=== PATIENT | male | born 1945 | race Caucasian/White ===

== ENCOUNTER 2021-03-04 13:19 | Emergency (ER) | payer MEDICARE ==
[2021-03-04 13:36] VITALS: BP 173/77; PULSE 60
[2021-03-04] MEDS ORDERED: Sodium Chloride 0.9% 10 ML Syringe FLUSH PRN (13:42)
[2021-03-04] MEDS ORDERED: Sodium Chloride 0.9% 2.5 ML Syringe FLUSH PRN (13:42)
[2021-03-04] MEDS ORDERED: Ketorolac 30 MG/ML SDV IVPUSH ONE (13:43)
[2021-03-04] MEDS ORDERED: Sodium Chloride 0.9% 1,000 ML IV ONE (13:43)
[2021-03-04] MEDS ORDERED: Ondansetron 4 MG/2 ML SDV IVPUSH ONE (13:43)
[2021-03-04 14:20] LABS: CARBON DIOXIDE,CO2 26.7 mmol/L (21.0-32.0)
--- NOTE | 2021-03-04 14:56 | CT ---
INDICATION: Left flank pain TECHNIQUE: CT abdomen and pelvis without contrast. COMPARISON: None FINDINGS: The visualized portions of the lung bases are clear. Evaluation of the abdominal viscera is limited due to lack of IV contrast, however the liver, spleen, pancreas and adrenal glands are unremarkable. A gallstone is seen within the nondistended gallbladder. There is mild left hydronephrosis with a 4 mm obstructing stone in the distal left ureter. This is located approximately 1.5 cm from the ureterovesical junction. Negative for right hydronephrosis or nephrolithiasis. There are bilateral renal cysts. The bladder is minimally distended. The prostate is enlarged measuring 4.7 x 5.7 cm. There is a small hiatal hernia. There are no dilated loops of small bowel to suggest obstruction.The appendix is normal.There is no intraperitoneal free air or fluid. The visualized osseous structures are unremarkable. IMPRESSION: 1. Mild left hydronephrosis and hydroureter with a 4 mm obstructing stone in the distal left ureter. 2. Cholelithiasis. 3. Small hiatal hernia. Please note that all CT scans at this facility use dose modulation, iterative reconstruction, and/or weight-based dosing when appropriate to reduce radiation dose to as low as reasonably achievable. Dictated by Deloris Umana MD @ 03/04/2021 2:55:[address] Deloris Umana @ Mar 04 2021 2:55PM
--- NOTE | 2021-03-04 15:37 | EDM.PDOC ---
ED HPI GENERAL MEDICAL PROBLEM - General Chief Complaint: Flank Pain Stated Complaint: BLOCKAGE Time Seen by Provider: 03/04/21 13:22 Source of Information: Reports: Patient History Limitations: Reports: No Limitations - History of Present Illness INITIAL COMMENTS - FREE TEXT/NARRATIVE: HISTORY AND PHYSICAL: History of present illness: The patient is a 76-year-old male who presents to the emergency department with left lateral flank pain with some abdominal cramping that started at 7:00 this a.m. the patient has been traveling for days had some constipation. He took Colace at 07 30 this morning and a fleets enema at 11 AM. He does have some nausea and had dry heaves around 09:00. He states he has been urinating without difficulty and denies any hematuria. Due to his nausea he is unable to eat or drink. He has never had this type of pain before. Patient denies any fever, chills, headache, change in vision, syncope or near syncope. Denies any chest pain, back pain, shortness of breath or cough. Denies any abdominal pain, diarrhea, or dysuria. Has not noted any blood in urine or stool. Patient has been eating and drinking appropriately. Review of systems: As per history of present illness and below otherwise all systems reviewed and negative. Past medical history: As per history of present illness and as reviewed below otherwise noncontributory. Surgical history: As per history of present illness and as reviewed below otherwise noncontributory. Social history: See social history for further information Family history: As per history of present illness and as reviewed below otherwise noncontributory. Physical exam: General: Well developed and well nourished. Alert and orientated x 3. Nontoxic in appearance and in no acute distress. Vital signs are stable and have been reviewed by me. Nursing notes were reviewed. HEENT: Atraumatic, normocephalic, pupils equal and reactive bilaterally, negative for conjunctival pallor or scleral icterus, mucous membranes moist, TMs normal bilaterally, throat clear, neck supple, nontender, trachea midline. No drooling or trismus noted. No meningeal signs. No hot potato voice noted. Lungs: Clear to auscultation bilaterally. No wheezes, rales, or rhonchi. Chest nontender. Normal work of breathing, no accessory muscles used. Heart: S1S2, regular rate and rhythm without overt murmur, gallops, or rubs. No JVD. No peripheral edema Abdomen: Soft, nondistended, nontender. Normoactive bowel sounds. Negative for masses or costovertebral tenderness. Skin: Intact, warm, dry. No lesions or rashes noted. Hematologic: No petechiae or purpra. Mucosa appropriate color and normal nail bed color and refill. Extremities: Atraumatic, moves all extremities per self without difficulty or deficits, negative for cords or calf pain. Neurovascular unremarkable. Neuro: Awake, alert, oriented. Cranial nerves II through XII unremarkable. Cerebellum unremarkable. Motor and sensory unremarkable throughout. Exam nonfocal. Psychiatric: Mood and affect are appropriate. Normal thought process. Answering questions appropriately. Notes: *This patient was seen and evaluated during the 2019 SARS-CoV-2 novel steven navirus pandemic period. Community viral transmission is ongoing at time of this encounter and the emergency department is operating under pandemic response procedures. The patient presents with complaints of left flank pain after having taking Colace and enema. The patient has no CVA tenderness so I will order a CBC, CMP and urinalysis. If he has hematuria in his urine I will order a CT to rule out renal calculi. We will treat his nausea with Zofran and his pain with Toradol. We will give him IV fluids. The CBC is unremarkable. The CMP: Creatinine 1.6. After speaking with the patient this is normal for him. Patient does have a large amount of hematuria on his urinalysis so an CT wo contrast is ordered. CT abdomen pelvis radiology reading: FINDINGS: The visualized portions of the lung bases are clear. Evaluation of the abdominal viscera is limited due to lack of IV contrast, however the liver, spleen, pancreas and adrenal glands are unremarkable. A gallstone is seen within the nondistended gallbladder. There is mild left hydronephrosis with a 4 mm obstructing stone in the distal left ureter. This is located approximately 1.5 cm from the ureterovesical junction. Negative for right hydronephrosis or nephrolithiasis. There are bilateral renal cysts. The bladder is minimally distended. The prostate is enlarged measuring 4.7 x 5.7 cm. There is a small hiatal hernia. There are no dilated loops of small bowel to suggest obstruction.The appendix is normal.There is no intraperitoneal free air or fluid. The visualized osseous structures are unremarkable. The patient is pain-free at this time. He is educated on the need to strain his urine and bring in the stone for evaluation. The patient is from out of town and visiting his son. He will follow up with his son's primary care or the urologist. The patient is agreeable to the plan of going home with [place] and Zofran. He is currently on Flomax daily. He will use the strainer and follow-up with the primary care or urologist. I have talked with the patient about today's findings, in addition to providing specific details for plan of care. Reassessment at the time of disposition demonstrates that the patient is in no acute distress. The patient is stable for discharge, counseling was provided and we discussed in great detail signs and symptoms that would prompt them to return to the Emergency Department. Medication, follow up and supportive care measures were reviewed and discussed. Voices understanding and is agreeable to plan of care. Denies any further questions or concerns at this time. Diagnostics: CBC, CMP, urinalysis, CT abdomen pelvis W0 Therapeutics: IV fluids, Zofran, Toradol Prescription: [place] 325 5 mg 1 tablet p.o. every 4 hours as needed for pain, Zofran 4 mg p.o. every 6-8 hours as needed nausea Impression: Left renal calculi Plan: 1. You were evaluated today on an emergent basis. Your complaints of left flank pain was evaluated with blood work, urinalysis, and CAT scan. Your creatinine was 1.6 for which you received a liter of fluids. You did indicate that your creatinine is normally a little high. The CT showed a kidney stone in the distal left ureter. Approximately 1.5 cm from the ureterovesical junction. You will continue to have pain as the stone moves until it reaches the bladder. I have prescribed [place] 1 tablet every 4 hours as needed for pain and Zofran 4 mg every 6-8 hours as needed for nausea. Continue to take your Flomax. I would like for you to follow-up with your primary care provider or a urologist. If you have uncontrollable pain please return to the emergency room. If you develop a fever please return to the emergency room. 2. You can alternate Tylenol and ibuprofen as needed for pain and fever management. 3. We encourage you to follow up with your primary care provider and/or recommended specialist in the next few days for re-evaluation and further care/management. 4. If your symptoms should worsen, new symptoms develop or any of the signs and symptoms we discussed should arise please return to the emergency room or call 911 (if needed). Definitive disposition and diagnosis as appropriate pending reevaluation and rev iew of above. Bilateral Lower Back Pain Score (Numeric/FACES): 6 - Related Data Allergies Allergy/AdvReac Type Severity Reaction Status Date / Time No Known Allergies Allergy Verified 03/04/21 13:26 Home Meds: Home Meds Chlorthalidone 25 mg PO DAILY 03/10/15 [History] Finasteride [Proscar] 5 mg PO DAILY 03/10/15 [History] Flecainide [Tambocor] 100 mg PO Q12H 03/10/15 [History] Lisinopril 20 mg PO BID 03/10/15 [History] atorvaSTATin [Lipitor] 40 mg PO BEDTIME 03/10/15 [History] Acetaminophen/HYDROcodone [[place] 325-5 MG] 1 tab PO Q4H 3 Days #24 tablet 03/04/21 [Rx] Ondansetron [Zofran ODT] 4 mg PO Q6H PRN #10 tab.dis 03/04/21 [Rx] Past Medical History HEENT History: Reports: None Cardiovascular History: Reports: High Cholesterol, Hypertension Other Cardiovascular History: PVC's Respiratory History: Reports: None Gastrointestinal History: Reports: GERD Genitourinary History: Reports: BPH Musculoskeletal History: Reports: None Neurological History: Reports: None Psychiatric History: Reports: None Endocrine/Metabolic History: Reports: None Hematologic History: Reports: None Immunologic History: Reports: None Oncologic (Cancer) History: Reports: None Dermatologic History: Reports: None - Infectious Disease History Infectious Disease History: Reports: Chicken Pox - Past Surgical History Head Surgeries/Procedures: Reports: None Social & Family History - Family History Family Medical History: No Pertinent Family History - Tobacco Use Tobacco Use Status *Q: Never Tobacco User - Caffeine Use Caffeine Use: Reports: Coffee - Recreational Drug Use Recreational Drug Use: No ED ROS GENERAL - Review of Systems Review Of Systems: Comprehensive ROS is negative, except as noted in HPI. ED EXAM, RENAL/ - Physical Exam Exam: See Below (Dictation) Course - Vital Signs Last Recorded V/S: Last Vital Signs Temp 98.1 F 03/04/21 13:26 Pulse 60 05/22/21 13:26 Resp 17 03/04/21 13:26 BP 173/77 H 03/04/21 13:26 Pulse Ox 96 03/04/21 13:26 - Orders/Labs/Meds Orders: Active Orders 24 hr Category Date Time Status Saline Lock Insert [OM.PC] Stat Oth 03/04/21 13:42 Ordered Labs: Laboratory Tests 03/04/21 03/04/21 03/04/21 Range/Units 13:42 13:55 13:55 WBC 10.88 (4.0-11.0) K/uL RBC 5.16 (4.50-5.90) M/uL Hgb 16.7 (13.0-17.0) g/dL Hct 48.6 (38.0-50.0) % MCV 94.2 (80.0-98.0) fL MCH 32.4 H (27.0-32.0) pg MCHC 34.4 (31.0-37.0) g/dL RDW Std Deviation 46.8 (28.0-62.0) fl RDW Coeff of Cj 14 (11.0-15.0) % Plt Count 218 (150-400) K/uL MPV 9.60 (7.40-12.00) fL Neut % (Auto) 85.0 H (48.0-80.0) % Lymph % (Auto) 10.9 L (16.0-40.0) % [place] % (Auto) 3.5 (0.0-15.0) % Eos % (Auto) 0.5 (0.0-7.0) % Baso % (Auto) 0.1 (0.0-1.5) % Neut # (Auto) 9.3 H (1.4-5.7) K/uL Lymph # (Auto) 1.2 (0.6-2.4) K/uL [place] # (Auto) 0.4 (0.0-0.8) K/uL Eos # (Auto) 0.1 (0.0-0.7) K/uL Baso # (Auto) 0.0 (0.0-0.1) K/uL Nucleated RBC % 0.0 /100WBC Nucleated RBCs # 0 K/uL Sodium 141 (136-148) mmol/L Potassium 4.0 (3.5-5.1) mmol/L Chloride 106 (98-107) mmol/L Carbon Dioxide 26.7 (21.0-32.0) mmol/L BUN 29 H (7.0-18.0) mg/dL Creatinine 1.6 H (0.8-1.3) mg/dL Est Cr Clr Drug Dosing 41.82 mL/min Estimated GFR (MDRD) 42.5 ml/min Glucose 135 H (74-106) mg/dL Calcium 9.0 (8.5-10.1) mg/dL Total Bilirubin 0.9 (0.2-1.0) mg/dL AST 30 (15-37) IU/L ALT 31 (14-63) IU/L Alkaline Phosphatase 74 (46-116) U/L Total Protein 8.1 (6.4-8.2) g/dL Albumin 4.1 (3.4-5.0) g/dL Globulin 4.0 (2.6-4.0) g/dL Albumin/Globulin Ratio 1.0 (0.9-1.6) Urine Color YELLOW Urine Appearance CLOUDY Urine pH 5.5 (5.0-8.0) Ur Specific [place] >= 1.030 (1.001-1.035) Urine Protein TRACE H (NEGATIVE) mg/dL Urine Glucose (UA) NEGATIVE (NEGATIVE) mg/dL Urine Ketones NEGATIVE (NEGATIVE) mg/dL Urine Occult Blood LARGE H (NEGATIVE) Urine Nitrite NEGATIVE (NEGATIVE) Urine Bilirubin NEGATIVE (NEGATIVE) Urine Urobilinogen 1.0 (<2.0) EU/dL Ur Leukocyte Esterase NEGATIVE (NEGATIVE) Urine RBC 150-200 (0-2/HPF) Urine WBC 0-2 (0-5/HPF) Urine Bacteria NOT SEEN (NEGATIVE) Urine Mucus LIGHT (NONE-MOD) Meds: Medications Discontinued Medications Generic Name Dose Route Start Last Admin Trade Name Freq PRN Reason Stop Dose Admin Sodium Chloride 1,000 mls @ 999 mls/hr 03/04/21 13:43 03/04/21 13:57 Normal Saline IV 03/04/21 14:43 999 mls/hr .BOLUS ONE Administration Ketorolac Tromethamine 30 mg 03/04/21 13:43 03/04/21 13:55 Ketorolac 30 Mg/Ml Sdv IVPUSH 03/04/21 13:44 30 mg ONETIME ONE Administration Ondansetron HCl 4 mg 03/04/21 13:43 03/04/21 13:55 Ondansetron 4 Mg/2 Ml Sdv IVPUSH 03/04/21 13:44 4 mg ONETIME ONE Administration Sodium Chloride 10 ml 03/04/21 13:42 03/04/21 13:58 Sodium Chloride 0.9% 10 Ml Syringe FLUSH 10 ml ASDIRECTED PRN Administration Keep Vein Open Sodium Chloride 2.5 ml 03/04/21 13:42 03/04/21 13:58 Sodium Chloride 0.9% 2.5 Ml Syringe FLUSH 2.5 ml ASDIRECTED PRN Administration Keep Vein Open Departure - Departure Time of Disposition: 15:38 Disposition: Home, Self-Care 01 Condition: Good Clinical Impression: Kidney stone on left side - Discharge Information *PRESCRIPTION DRUG MONITORING PROGRAM REVIEWED*: Not Applicable *COPY OF PRESCRIPTION DRUG MONITORING REPORT IN PATIENT MARIBETH: Not Applicable Prescriptions: Acetaminophen/HYDROcodone [[place] 325-5 MG] 1 tab PO Q4H 3 Days #24 tablet Ondansetron [Zofran ODT] 4 mg PO Q6H PRN #10 tab.dis PRN Reason: Nausea Instructions: Renal Colic, [id number] Referrals: PCP,Not In Area [Primary Care Provider] - Forms: ED Department Discharge Additional Instructions: The following information is given to patients seen in the emergency department who are being discharged to home. This information is to outline your options for follow-up care. We provide all patients seen in our emergency department with a follow-up referral. The need for follow-up, as well as the timing and circumstances, are variable depending upon the specifics of your emergency department visit. If you don't have a primary care physician on staff, we will provide you with a referral. We always advise you to contact your personal physician following an emergency department visit to inform them of the circumstance of the visit and for follow-up with them and/or the need for any referrals to a consulting specialist. The emergency department will also refer you to a specialist when appropriate. This referral assures that you have the opportunity for follow-up care with a specialist. All of these measure are taken in an effort to provide you with optimal care, which includes your follow-up. Under all circumstances we always encourage you to contact your private physician who remains a resource for coordinating your care. When calling for follow-up care, please make the office aware that this follow-up is from your recent emergency room visit. If for any reason you are refused follow-up, please contact the Emergency Department at and asked to speak to the emergency department charge nurse. [facility] - [facility] [address] [place] [id number] [facility] [address] [place] [address] Plan: 1. You were evaluated today on an emergent basis. Your complaints of left flank pain was evaluated with blood work, urinalysis, and CAT scan. Your creatinine was 1.6 for which you received a liter of fluids. You did indicate that your creatinine is normally a little high. The CT showed a kidney stone in the distal left ureter. Approximately 1.5 cm from the ureterovesical junction. You will continue to have pain as the stone moves until it reaches the bladder. I have prescribed [place] 1 tablet every 4 hours as needed for pain and Zofran 4 mg every 6-8 hours as needed for nausea. Continue to take your Flomax. I would like for you to follow-up with your primary care provider or a urologist. If you have uncontrollable pain please return to the emergency room. If you develop a fever please return to the emergency room. 2. You can alternate Tylenol and ibuprofen as needed for pain and fever management. 3. We encourage you to follow up with your primary care provider and/or recommended specialist in the next few days for re-evaluation and further care/management. 4. If your symptoms should worsen, new symptoms develop or any of the signs and symptoms we discussed should arise please return to the emergency room or call 911 (if needed). Sepsis Event Note (ED) - Evaluation Sepsis Screening Result: No Definite Risk - My Orders Last 24 Hours: My Active Orders 03/04/21 13:42 Saline Lock Insert [OM.PC] Stat - Assessment/Plan Last 24 Hours: My Active Orders 03/04/21 13:42 Saline Lock Insert [OM.PC] Stat
== END 2021-03-04 15:56 | disposition home or self-care (01) ==
LOC: MW.ED 13:19
DX: N13.2 Hydronephrosis with renal and ureteral calculous obstruction (principal); E78.00 Pure hypercholesterolemia, unspecified; I10 Essential (primary) hypertension; N40.0 Benign prostatic hyperplasia without lower urinary tract symptoms; Z79.899 Other long term (current) drug therapy
CPT/HCPCS: 36415; 74176; 80053; 81001; 85025; 96374; 96375; 99284; J1885; J2405; J7030

== ENCOUNTER 2021-04-30 03:52 | Inpatient (IN) | payer MEDICARE ==
[2021-04-30] MEDS ORDERED: Sodium Chloride 0.9% 2.5 ML Syringe FLUSH PRN (04:18)
[2021-04-30] MEDS ORDERED: Sodium Chloride 0.9% 1,000 ML IV ONE (04:18)
[2021-04-30] MEDS ORDERED: Sodium Chloride 0.9% 10 ML Syringe FLUSH PRN (04:18)
[2021-04-30] MEDS ORDERED: Diltiazem 25 MG/5 ML SDV IVPUSH ONE ×2 (04:20→06:56)
--- NOTE | 2021-04-30 04:24 | EDM.PDOC ---
ED HPI GENERAL MEDICAL PROBLEM - General Stated Complaint: rapid heartbeat Time Seen by Provider: 04/30/21 04:11 - History of Present Illness INITIAL COMMENTS - FREE TEXT/NARRATIVE: HISTORY AND PHYSICAL: History of present illness: This is a 76-year-old gentleman with a history significant for hypertension who presents ER today secondary to feeling an irregular heartbeat since 10 PM. Patient reports that he was diagnosed with atrial fibrillation in 2014. He reports he was in the hospital for approximately 3 hours when he cardioverted to sinus rhythm and has been in sinus rhythm ever since. Patient reports that he was never treated for his atrial fibrillation and has not required any anticoagulation therapy. Patient reports that he recently saw his nuclear radiation engineer since he was relocating to [facility] and had a full cardiac evaluation perfo rmed including an echocardiogram and a cardiac catheterization. He reports that he did not have any coronary artery disease or require any stents at that time. This was done within the last 6-month. Patient denies any recent fevers, shakes, chills, nausea, vomiting, diarrhea, dysuria, frequency, urgency, chest pain or discomfort, melena, bright red blood per rectum, hematuria. Patient reports no new medications. Review of systems: As per history of present illness and below otherwise all systems reviewed and negative. Past medical history: As per history of present illness and as reviewed below otherwise noncontributory. Surgical history: As per history of present illness and as reviewed below otherwise noncontributory. Social history: No reported history of drug abuse. Family history: As per history of present illness and as reviewed below otherwise noncontributory. Physical exam: This patient was seen and evaluated during the 2019 SARS-CoV-2 novel coronavirus pandemic period. Community viral transmission is ongoing at time of this encounter and the emergency department is operating under pandemic response procedures. Constitutional: Patient is oriented to person, place, and time. Appears well- developed and well-nourished. No distress. HEENT: Moist mucous membranes Head: Normocephalic and atraumatic Eyes: Right eye exhibits no discharge. Left eye exhibits no discharge. No scleral icterus Neck: Normal range of motion. No tracheal deviation present. Cardiovascular: Irregular irregular with a heart rate of 134 Pulmonary: Effort normal, no respiratory distress. Abdominal: No distention Musculoskeletal: Normal range of motion Neurologic: Alert and oriented to person, place and time. Skin: [place], warm and dry. Psychiatric: Normal mood and affect. Behavior is normal. Judgment and thought content normal. Nursing note and vital signs have been reviewed Diagnostics: EKG: As interpreted by ER physician: Julissa: Nonspecific ST-T wave abnormalities Normal axis No evidence of ST elevation AL Atrial fibrillation with a heart rate of 134 Chest Xray: Normal cardiac silhouette No infiltrates or effusions identified. No PTX No evidence of acute bony fracture. As interpreted by ER MD: Julissa [employer]: NSS x1 L, diltiazem 20 mg IV, diltiazem 5 mg/h IV drip and titrate Assessment and plan: 76-year-old gentleman with a distant history of self-limited atrial fibrillation who presents ER today feeling that his atrial fibrillation is back. Patient reports that his last episode of atrial fibrillation was in 2014 and has not been on any anticoagulation therapy or require any chemical or electrical cardioversion back in 2014. Patient reports that he has been symptom-free for the last 6 years until approximately 10 PM tonight when he started feeling irregular heartbeat similar to what he felt when he was diagnosed with atrial fibrillation. Patient will get started on a Cardizem drip after a bolus of 20 mg IV. Patient will have his labs drawn including a TSH, troponin, CMP, PT PTT. Patient will be reevaluated after labs. 6:30 AM: After discussing with patient's , patient's reports that he was started on flecainide in 2014 after being diagnosed with atrial fibrillation and was treated with flecainide since. reports that his atrial fibrillation lasted for a short amount of time in the hospital and resolved after treatment with the flecainide. Patient has been in sinus rhythm since. Patient's labs are all within normal limits. In the ED, the patient was started on a Cardizem bolus of 20 mg IV followed by a Cardizem drip. Patient's heart rate initially responded with a pulse of less than 90 after the bolus however it is slowly been rising and has stabilized at a heart rate of approximately 120 to 130 bpm. Patient will be given a dose of Lopressor 5 mg IV in the ED to assist with rate control. Second dose of Cardizem 25 mg IV was deferred secondary to significant drop in his blood pressure after the initial dose of 20 mg. Case was discussed with Dr. Lazo who agrees with plan to admit to the ICU. Critical Care: The high probability of sudden, clinically significant deterioration in the patient's condition required the highest level of my preparedness to intervene urgently. The services I provided to this patient were to treat and/or prevent clinically significant deterioration. Services included the following: chart data review, reviewing nursing notes and/or old charts, documentation time, travel service consultant collaboration regarding findings and treatment options, medication orders and management, direct patient care, vital sign assessments and ordering, interpreting and reviewing diagnostic studies/lab tests. Aggregate critical care time includes only time during which I was e ngaged inwork directly related to the patient's care, as described above, whether at the bedside or elsewhere in the Emergency Department. It did not include time spent performing other reported procedures or the services of residents, students, nurses or physician assistants. Critical Care Time: 35 minutes Definitive disposition and diagnosis as appropriate pending reevaluation and review of above. - Related Data Allergies Allergy/AdvReac Type Severity Reaction Status Date / Time No Known Allergies Allergy Verified 04/30/21 07:57 Home Meds: Home Meds Chlorthalidone 25 mg PO DAILY 03/10/15 [History] Finasteride [Proscar] 5 mg PO DAILY 03/10/15 [History] Lisinopril 20 mg PO BID 03/10/15 [History] Aspirin 81 mg PO DAILY 04/30/21 [History] Ezetimibe 10 mg PO DAILY 04/30/21 [History] Lovastatin 10 mg PO DAILY 04/30/21 [History] Multivitamin 1 tab PO DAILY 04/30/21 [History] Sotalol HCl [Sotalol] 120 mg PO BID 04/30/21 [History] Ubidecarenone [Coq-10] 300 mg PO DAILY 04/30/21 [History] Past Medical History HEENT History: Reports: None Cardiovascular History: Reports: High Cholesterol, Hypertension Other Cardiovascular History: PVC's Respiratory History: Reports: None Gastrointestinal History: Reports: GERD Genitourinary History: Reports: BPH Musculoskeletal History: Reports: None Neurological History: Reports: None Psychiatric History: Reports: None Endocrine/Metabolic History: Reports: None Hematologic History: Reports: None Immunologic History: Reports: None Oncologic (Cancer) History: Reports: None Dermatologic History: Reports: None - Infectious Disease History Infectious Disease History: Reports: Chicken Pox - Past Surgical History Head Surgeries/Procedures: Reports: None Social & Family History - Family History Family Medical History: No Pertinent Family History - Caffeine Use Caffeine Use: Reports: Coffee ED ROS GENERAL - Review of Systems Review Of Systems: See Below ED EXAM, GENERAL - Physical Exam Exam: See Below Course - Vital Signs Last Recorded V/S: Last Vital Signs Temp 97.4 F 04/30/21 20:00 Pulse 112 H 04/30/21 20:47 Resp 16 04/30/21 23:00 BP 115/64 04/30/21 23:00 Pulse Ox 92 L 04/30/21 23:00 - Orders/Labs/Meds Orders: Active Orders 24 hr Category Date Time Status Sodium Chloride 0.9% [Saline Flush] Med 04/30/21 04:18 Active 10 ml FLUSH ASDIRECTED PRN Sodium Chloride 0.9% [Saline Flush] Med 04/30/21 04:18 Active 2.5 ml FLUSH ASDIRECTED PRN Saline Lock Insert [OM.PC] Stat Oth 04/30/21 04:18 Ordered Medication Orders Digoxin (Digoxin 500 Mcg/2 Ml Amp) 250 mcg IVPUSH ONETIME ONE Stop: 05/01/21 01:01 Enoxaparin Sodium (Enoxaparin 40 Mg/0.4 Ml Syringe) 40 mg SUBCUT Q24H JIMENA Last Admin: 04/30/21 15:04 Dose: 40 mg Documented by: BRENNAN Diltiazem HCl 100 mg/ Sodium (Chloride) 100 mls @ 5 mls/hr IV NOW JIMENA; Protocol Sodium Chloride (Sodium Chloride 0.9% 10 Ml Syringe) 10 ml FLUSH ASDIRECTED PRN PRN Reason: Keep Vein Open Last Admin: 04/30/21 04:49 Dose: 10 ml Documented by: MAHNAZ Sodium Chloride (Sodium Chloride 0.9% 2.5 Ml Syringe) 2.5 ml FLUSH ASDIRECTED PRN PRN Reason: Keep Vein Open Last Admin: 04/30/21 04:48 Dose: 2.5 ml Documented by: MAHNAZ Labs: Laboratory Tests 04/30/21 04/30/21 04/30/21 Range/Units 04:42 04:42 04:42 WBC 7.38 (4.0-11.0) K/uL RBC 4.96 (4.50-5.90) M/uL Hgb 15.8 (13.0-17.0) g/dL Hct 45.2 (38.0-50.0) % MCV 91.1 (80.0-98.0) fL MCH 31.9 (27.0-32.0) pg MCHC 35.0 (31.0-37.0) g/dL RDW Std Deviation 44.8 (28.0-62.0) fl RDW Coeff of Cj 14 (11.0-15.0) % Plt Count 240 (150-400) K/uL MPV 9.20 (7.40-12.00) fL Neut % (Auto) 56.7 (48.0-80.0) % Lymph % (Auto) 29.0 (16.0-40.0) % [place] % (Auto) 10.4 (0.0-15.0) % Eos % (Auto) 3.5 (0.0-7.0) % Baso % (Auto) 0.4 (0.0-1.5) % Neut # (Auto) 4.2 (1.4-5.7) K/uL Lymph # (Auto) 2.1 (0.6-2.4) K/uL [place] # (Auto) 0.8 (0.0-0.8) K/uL Eos # (Auto) 0.3 (0.0-0.7) K/uL Baso # (Auto) 0.0 (0.0-0.1) K/uL Nucleated RBC % 0.0 /100WBC Nucleated RBCs # 0 K/uL INR 0.99 APTT 27.3 (18.6-31.3) SEC Sodium 143 (136-148) mmol/L Potassium 4.1 (3.5-5.1) mmol/L Chloride 108 H (98-107) mmol/L Carbon Dioxide 23.1 (21.0-32.0) mmol/L BUN 31 H (7.0-18.0) mg/dL Creatinine 1.3 (0.8-1.3) mg/dL Est Cr Clr Drug Dosing TNP Estimated GFR (MDRD) 54.0 ml/min Glucose 114 H (74-106) mg/dL Calcium 9.1 (8.5-10.1) mg/dL Magnesium (1.8-2.4) mg/dL Total Bilirubin 0.5 (0.2-1.0) mg/dL AST 29 (15-37) IU/L ALT 36 (14-63) IU/L Alkaline Phosphatase 55 (46-116) U/L Troponin I < 0.050 (0.000-0.056) ng/mL Total Protein 7.2 (6.4-8.2) g/dL Albumin 3.8 (3.4-5.0) g/dL Globulin 3.4 (2.6-4.0) g/dL Albumin/Globulin Ratio 1.1 (0.9-1.6) TSH, Ultra Sensitive 0.93 (0.36-3.74) uIU/mL 04/30/21 Range/Units 04:42 WBC (4.0-11.0) K/uL RBC (4.50-5.90) M/uL Hgb (13.0-17.0) g/dL Hct (38.0-50.0) % MCV (80.0-98.0) fL MCH (27.0-32.0) pg MCHC (31.0-37.0) g/dL RDW Std Deviation (28.0-62.0) fl RDW Coeff of Cj (11.0-15.0) % Plt Count (150-400) K/uL MPV (7.40-12.00) fL Neut % (Auto) (48.0-80.0) % Lymph % (Auto) (16.0-40.0) % [place] % (Auto) (0.0-15.0) % Eos % (Auto) (0.0-7.0) % Baso % (Auto) (0.0-1.5) % Neut # (Auto) (1.4-5.7) K/uL Lymph # (Auto) (0.6-2.4) K/uL [place] # (Auto) (0.0-0.8) K/uL Eos # (Auto) (0.0-0.7) K/uL Baso # (Auto) (0.0-0.1) K/uL Nucleated RBC % /100WBC Nucleated RBCs # K/uL INR APTT (18.6-31.3) SEC Sodium (136-148) mmol/L Potassium (3.5-5.1) mmol/L Chloride (98-107) mmol/L Carbon Dioxide (21.0-32.0) mmol/L BUN (7.0-18.0) mg/dL Creatinine (0.8-1.3) mg/dL Est Cr Clr Drug Dosing Estimated GFR (MDRD) ml/min Glucose (74-106) mg/dL Calcium (8.5-10.1) mg/dL Magnesium 2.0 (1.8-2.4) mg/dL Total Bilirubin (0.2-1.0) mg/dL AST (15-37) IU/L ALT (14-63) IU/L Alkaline Phosphatase (46-116) U/L Troponin I (0.000-0.056) ng/mL Total Protein (6.4-8.2) g/dL Albumin (3.4-5.0) g/dL Globulin (2.6-4.0) g/dL Albumin/Globulin Ratio (0.9-1.6) TSH, Ultra Sensitive (0.36-3.74) uIU/mL Meds: Medications Generic Name Dose Route Start Last Admin Trade Name Freq PRN Reason Stop Dose Admin Digoxin 250 mcg 05/01/21 01:00 Digoxin 500 Mcg/2 Ml Amp IVPUSH 05/01/21 01:01 ONETIME ONE Enoxaparin Sodium 40 mg 04/30/21 14:30 04/30/21 15:04 Enoxaparin 40 Mg/0.4 Ml Syringe SUBCUT 40 mg Q24H JIMENA Administration Diltiazem HCl 100 mg/ Sodium 100 mls @ 5 mls/hr 04/30/21 13:45 Chloride IV NOW JIMENA Protocol 5 MG/HR Sodium Chloride 10 ml 04/30/21 04:18 04/30/21 04:49 Sodium Chloride 0.9% 10 Ml Syringe FLUSH 10 ml ASDIRECTED PRN Administration Keep Vein Open Sodium Chloride 2.5 ml 04/30/21 04:18 04/30/21 04:48 Sodium Chloride 0.9% 2.5 Ml Syringe FLUSH 2.5 ml ASDIRECTED PRN Administration Keep Vein Open Discontinued Medications Generic Name Dose Route Start Last Admin Trade Name Freq PRN Reason Stop Dose Admin Digoxin 250 mcg 04/30/21 13:33 04/30/21 14:08 Digoxin 500 Mcg/2 Ml Amp IVPUSH 04/30/21 13:34 250 mcg ONETIME ONE Administration Digoxin 250 mcg 04/30/21 20:18 04/30/21 20:47 Digoxin 500 Mcg/2 Ml Amp IVPUSH 04/30/21 20:19 250 mcg ONETIME ONE Administration Diltiazem HCl 20 mg 04/30/21 04:20 04/30/21 04:48 Diltiazem 25 Mg/5 Ml Sdv IVPUSH 04/30/21 04:21 20 mg ONETIME ONE Administration Diltiazem HCl 20 mg 04/30/21 06:56 04/30/21 07:01 Diltiazem 25 Mg/5 Ml Sdv IVPUSH 04/30/21 06:57 20 mg ONETIME ONE Administration Diltiazem HCl Confirm 04/30/21 06:55 04/30/21 07:20 Diltiazem 25 Mg/5 Ml Sdv Administered 04/30/21 06:56 Not Given Dose 25 mg .ROUTE .STK-MED ONE Sodium Chloride 1,000 mls @ 999 mls/hr 04/30/21 04:18 04/30/21 04:48 Normal Saline IV 04/30/21 05:18 999 mls/hr .Bolus ONE Administration Diltiazem HCl 100 mg/ Sodium 100 mls @ 5 mls/hr 04/30/21 04:30 04/30/21 11:53 Chloride IV 0 mg/hr NOW JIMENA 0 mls/hr Titration Protocol 5 MG/HR Metoprolol Tartrate 5 mg/ 55 mls @ 100 mls/hr 04/30/21 06:24 04/30/21 06:28 Sodium Chloride IV 04/30/21 06:56 Not Given ONETIME ONE Metoprolol Tartrate 5 mg 04/30/21 06:29 04/30/21 06:33 Metoprolol Tartrate 5 Mg/5 Ml Sdv IVPUSH 04/30/21 06:30 5 mg ONETIME ONE Administration Metoprolol Tartrate Confirm 04/30/21 06:27 04/30/21 06:33 Metoprolol Tartrate 5 Mg/5 Ml Sdv Administered 04/30/21 06:28 Not Given Dose 5 mg .ROUTE .STK-MED ONE Sotalol HCl 120 mg 04/30/21 13:45 04/30/21 16:40 Sotalol 80 Mg Tab PO 120 mg BID JIMENA Administration Departure - Departure Time of Disposition: 23:00 Disposition: Admitted As Inpatient 68 Condition: Good Clinical Impression: Atrial fibrillation with rapid ventricular response - Discharge Information - My Orders Last 24 Hours: My Active Orders 04/30/21 04:18 Sodium Chloride 0.9% [Saline Flush] 10 ml FLUSH ASDIRECTED PRN Sodium Chloride 0.9% [Saline Flush] 2.5 ml FLUSH ASDIRECTED PRN Saline Lock Insert [OM.PC] Stat - Assessment/Plan Last 24 Hours: My Active Orders 04/30/21 04:18 Sodium Chloride 0.9% [Saline Flush] 10 ml FLUSH ASDIRECTED PRN Sodium Chloride 0.9% [Saline Flush] 2.5 ml FLUSH ASDIRECTED PRN Saline Lock Insert [OM.PC] Stat
[2021-04-30] MEDS ORDERED: Diltiazem 100 MG in Sodium Chloride 0.9% 100 ML IV SCH ×2 (04:30→13:45)
[2021-04-30 05:19] LABS: BLOOD UREA NITROGEN,BUN 31 mg/dL (7.0-18.0); CARBON DIOXIDE,CO2 23.1 mmol/L (21.0-32.0); CHLORIDE,CL 108 mmol/L (98-107); GLUCOSE RANDOM 114 mg/dL (74-106); POTASSIUM,K 4.1 mmol/L (3.5-5.1); SODIUM,NA 143 mmol/L (136-148)
--- NOTE | 2021-04-30 05:31 | CR ---
Indication: Chest pain. AFib Technique: Chest 1 view Comparison: None Findings/Impression: Cardiovascular and mediastinum: Normal cardiac size. A mildly unfolded, calcified aorta. Lungs and pleural space: No consolidation or pleural effusions. No pneumothorax seen. Bones and soft tissues: Degenerative changes in the left glenohumeral joint. Dictated by Jon Jacques MD @ 04/30/2021 5:29:[address] Jon Jacques @ Apr 30 2021 5:29AM
[2021-04-30] MEDS ORDERED: Metoprolol Tartrate 5 MG in Sodium Chloride 0.9% 50 ML IV ONE (06:24)
[2021-04-30] MEDS ORDERED: Metoprolol Tartrate 5 MG/5 ML SDV ONE (06:27)
[2021-04-30] MEDS ORDERED: Metoprolol Tartrate 5 MG/5 ML SDV IVPUSH ONE (06:29)
[2021-04-30] MEDS ORDERED: Diltiazem 25 MG/5 ML SDV ONE (06:55)
--- NOTE | 2021-04-30 10:01 | PCM.HP.2 ---
H&P History of Present Illness - General Admit Problem/Dx: Admission Diagnosis/Problem Admission Diagnosis/Problem Atrial fibrillation with rapid ventricular response - Related Data Allergies/Adverse Reactions: Allergies Allergy/AdvReac Type Severity Reaction Status Date / Time No Known Allergies Allergy Verified 04/30/21 07:57 Home Medications: Home Meds Chlorthalidone 25 mg PO DAILY 03/10/15 [History] Finasteride [Proscar] 5 mg PO DAILY 03/10/15 [History] Lisinopril 20 mg PO BID 03/10/15 [History] Aspirin 81 mg PO DAILY 04/30/21 [History] Ezetimibe 10 mg PO DAILY 04/30/21 [History] Lovastatin 10 mg PO DAILY 04/30/21 [History] Multivitamin 1 tab PO DAILY 04/30/21 [History] Sotalol HCl [Sotalol] 120 mg PO BID 04/30/21 [History] Ubidecarenone [Coq-10] 300 mg PO DAILY 04/30/21 [History] Past Medical History HEENT History: Reports: None Cardiovascular History: Reports: Afib, High Cholesterol, Hypertension Other Cardiovascular History: PVC's Respiratory History: Reports: Sleep Apnea Gastrointestinal History: Reports: GERD Genitourinary History: Reports: BPH Musculoskeletal History: Reports: None Neurological History: Reports: None Psychiatric History: Reports: None Endocrine/Metabolic History: Reports: None Hematologic History: Reports: None Immunologic History: Reports: None Oncologic (Cancer) History: Reports: None Dermatologic History: Reports: None - Infectious Disease History Infectious Disease History: Reports: Chicken Pox - Past Surgical History Head Surgeries/Procedures: Reports: None Cardiovascular Surgical History: Reports: Cardiac Ablation Social & Family History - Family History Family Medical History: No Pertinent Family History - Tobacco Use Tobacco Use Status *Q: Never Tobacco User - Caffeine Use Caffeine Use: Reports: Coffee Caffeine Use Comment: 1 cup daily every morning - Alcohol Use Date of Last Drink: 01/12/21 - Recreational Drug Use Recreational Drug Use: No Exam - Vital Signs Vital Signs: Last Vital Signs Temp 36.2 C 04/30/21 07:45 Pulse 84 04/30/21 07:26 Resp 15 04/30/21 09:00 BP 93/73 04/30/21 09:00 Pulse Ox 92 L 04/30/21 09:00 Weight: 112.3 kg - Patient Data Lab Results Last 24 hrs: Laboratory Results - last 24 hr 04/30/21 04/30/21 04/30/21 Range/Units 04:42 04:42 04:42 WBC 7.38 (4.0-11.0) K/uL RBC 4.96 (4.50-5.90) M/uL Hgb 15.8 (13.0-17.0) g/dL Hct 45.2 (38.0-50.0) % MCV 91.1 (80.0-98.0) fL MCH 31.9 (27.0-32.0) pg MCHC 35.0 (31.0-37.0) g/dL RDW Std Deviation 44.8 (28.0-62.0) fl RDW Coeff of Cj 14 (11.0-15.0) % Plt Count 240 (150-400) K/uL MPV 9.20 (7.40-12.00) fL Neut % (Auto) 56.7 (48.0-80.0) % Lymph % (Auto) 29.0 (16.0-40.0) % [place] % (Auto) 10.4 (0.0-15.0) % Eos % (Auto) 3.5 (0.0-7.0) % Baso % (Auto) 0.4 (0.0-1.5) % Neut # (Auto) 4.2 (1.4-5.7) K/uL Lymph # (Auto) 2.1 (0.6-2.4) K/uL [place] # (Auto) 0.8 (0.0-0.8) K/uL Eos # (Auto) 0.3 (0.0-0.7) K/uL Baso # (Auto) 0.0 (0.0-0.1) K/uL Nucleated RBC % 0.0 /100WBC Nucleated RBCs # 0 K/uL INR 0.99 APTT 27.3 (18.6-31.3) SEC Sodium 143 (136-148) mmol/L Potassium 4.1 (3.5-5.1) mmol/L Chloride 108 H (98-107) mmol/L Carbon Dioxide 23.1 (21.0-32.0) mmol/L BUN 31 H (7.0-18.0) mg/dL Creatinine 1.3 (0.8-1.3) mg/dL Est Cr Clr Drug Dosing TNP Estimated GFR (MDRD) 54.0 ml/min Glucose 114 H (74-106) mg/dL Calcium 9.1 (8.5-10.1) mg/dL Total Bilirubin 0.5 (0.2-1.0) mg/dL AST 29 (15-37) IU/L ALT 36 (14-63) IU/L Alkaline Phosphatase 55 (46-116) U/L Troponin I < 0.050 (0.000-0.056) ng/mL Total Protein 7.2 (6.4-8.2) g/dL Albumin 3.8 (3.4-5.0) g/dL Globulin 3.4 (2.6-4.0) g/dL Albumin/Globulin Ratio 1.1 (0.9-1.6) TSH, Ultra Sensitive 0.93 (0.36-3.74) uIU/mL Result Diagrams: 04/30/21 04:42 04/30/21 04:42 Sepsis Event Note - Evaluation Sepsis Screening Result: No Definite Risk - Focused Exam Vital Signs: Vital Signs Temp Pulse Pulse Resp BP BP Pulse Ox 04/30/21 09:00 15 93/73 92 L 04/30/21 08:00 14 115/73 93 L 04/30/21 07:45 36.2 C 20 120/77 94 L 04/30/21 07:26 84 04/30/21 07:02 96 15 111/70 93 L 04/30/21 06:33 128 H 138/71 04/30/21 06:04 130 H 20 111/53 L 93 L 04/30/21 04:52 90 18 121/80 97 04/30/21 04:33 35.5 C L 140 H 20 96/69 100 Orders Last 24hrs: Active Orders 24 hr Category Date Time Status Patient Status [ADT] Routine ADT 04/30/21 06:25 Active Antiembolic Devices [RC] PER UNIT ROUTINE Care 04/30/21 08:30 Active EKG Documentation Completion [RC] AM Care 04/30/21 04:18 Active Vital Signs [RC] Q1H Care 04/30/21 08:00 Active Regular Diet [DIET] Diet 04/30/21 Breakfast Active Diltiazem [Cardizem] 100 mg Med 04/30/21 04:30 Active Sodium Chloride 0.9% [Normal Saline] 100 ml IV NOW Sodium Chloride 0.9% [Saline Flush] Med 04/30/21 04:18 Active 10 ml FLUSH ASDIRECTED PRN Sodium Chloride 0.9% [Saline Flush] Med 04/30/21 04:18 Active 2.5 ml FLUSH ASDIRECTED PRN SCD [Sequential Compression Device] [OM.PC] Routine Oth 04/30/21 08:30 Ordered Saline Lock Insert [OM.PC] Stat Oth 04/30/21 04:18 Ordered Medication Orders Diltiazem HCl 100 mg/ Sodium (Chloride) 100 mls @ 5 mls/hr IV NOW [facility]; Protocol Last Titration: 04/30/21 06:05 Dose: 15 mg/hr, 15 mls/hr Documented by: ANA LILIA Admin: 04/30/21 05:09 Dose: 5 mg/hr, 5 mls/hr Documented by: [id number] Sodium Chloride (Sodium Chloride 0.9% 10 Ml Syringe) 10 ml FLUSH ASDIRECTED PRN PRN Reason: Keep Vein Open Last Admin: 04/30/21 04:49 Dose: 10 ml Documented by: [id number] Sodium Chloride (Sodium Chloride 0.9% 2.5 Ml Syringe) 2.5 ml FLUSH ASDIRECTED PRN PRN Reason: Keep Vein Open Last Admin: 04/30/21 04:48 Dose: 2.5 ml Documented by: [id number]
[2021-04-30] MEDS ORDERED: Digoxin 500 MCG/2 ML Amp IVPUSH ONE ×2 (13:33→20:18)
[2021-04-30] MEDS ORDERED: Sotalol 80 MG Tab PO SCH (13:45)
--- NOTE | 2021-04-30 14:25 | PCM.HP.2 ---
H&P History of Present Illness - General Date of Service: 04/30/21 Admit Problem/Dx: Admission Diagnosis/Problem Admission Diagnosis/Problem Atrial fibrillation with rapid ventricular response - History of Present Illness Initial Comments - Free Text/Narative: 76 yo male who presents with one day history of palpitaitons. Patient denies any chest pain, shortness of breath, or dizziness. He was found to be in atrial fibrillation with RVR. He reports a history of a.fib but has in been in normal sinus for years. He takes sotolol, and ASA. 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 - Related Data Allergies/Adverse Reactions: Allergies Allergy/AdvReac Type Severity Reaction Status Date / Time No Known Allergies Allergy Verified 04/30/21 07:57 Home Medications: Home Meds Chlorthalidone 25 mg PO DAILY 03/10/15 [History] Finasteride [Proscar] 5 mg PO DAILY 03/10/15 [History] Lisinopril 20 mg PO BID 03/10/15 [History] Aspirin 81 mg PO DAILY 04/30/21 [History] Ezetimibe 10 mg PO DAILY 04/30/21 [History] Lovastatin 10 mg PO DAILY 04/30/21 [History] Multivitamin 1 tab PO DAILY 04/30/21 [History] Sotalol HCl [Sotalol] 120 mg PO BID 04/30/21 [History] Ubidecarenone [Coq-10] 300 mg PO DAILY 04/30/21 [History] Past Medical History HEENT History: Reports: None Cardiovascular History: Reports: Afib, High Cholesterol, Hypertension Other Cardiovascular History: PVC's Respiratory History: Reports: Sleep Apnea Gastrointestinal History: Reports: GERD Genitourinary History: Reports: BPH Musculoskeletal History: Reports: None Neurological History: Reports: None Psychiatric History: Reports: None Endocrine/Metabolic History: Reports: None Hematologic History: Reports: None Immunologic History: Reports: None Oncologic (Cancer) History: Reports: None Dermatologic History: Reports: None - Infectious Disease History Infectious Disease History: Reports: Chicken Pox - Past Surgical History Head Surgeries/Procedures: Reports: None Cardiovascular Surgical History: Reports: Cardiac Ablation Social & Family History - Family History Family Medical History: No Pertinent Family History - Tobacco Use Tobacco Use Status *Q: Never Tobacco User - Caffeine Use Caffeine Use: Reports: Coffee Caffeine Use Comment: 1 cup daily every morning - Alcohol Use Date of Last Drink: 01/12/21 - Recreational Drug Use Recreational Drug Use: No H&P Review of Systems - Review of Systems: Review Of Systems: Comprehensive ROS is negative, except as noted in HPI. Exam - Exam Exam: See Below - Vital Signs Vital Signs: Last Vital Signs Temp 36.3 C 04/30/21 12:00 Pulse 121 H 04/30/21 14:08 Resp 20 04/30/21 14:00 BP 92/54 L 04/30/21 14:00 Pulse Ox 93 L 04/30/21 14:00 Weight: 112.3 kg - Exam General: Alert, Oriented HEENT: Mucosa Moist & [place] Neck: Supple Lungs: Clear to Auscultation, Normal Respiratory Effort Cardiovascular: Regular Rate, Regular Rhythm GI/Abdominal Exam: Normal Bowel Sounds, Soft, Non-Tender Extremities: Non-Tender, No Pedal Edema Skin: Warm, Dry, Intact Neurological: Cranial Nerves Intact - Patient Data Lab Results Last 24 hrs: Laboratory Results - last 24 hr 04/30/21 04/30/21 04/30/21 Range/Units 04:42 04:42 04:42 WBC 7.38 (4.0-11.0) K/uL RBC 4.96 (4.50-5.90) M/uL Hgb 15.8 (13.0-17.0) g/dL Hct 45.2 (38.0-50.0) % MCV 91.1 (80.0-98.0) fL MCH 31.9 (27.0-32.0) pg MCHC 35.0 (31.0-37.0) g/dL RDW Std Deviation 44.8 (28.0-62.0) fl RDW Coeff of Cj 14 (11.0-15.0) % Plt Count 240 (150-400) K/uL MPV 9.20 (7.40-12.00) fL Neut % (Auto) 56.7 (48.0-80.0) % Lymph % (Auto) 29.0 (16.0-40.0) % [place] % (Auto) 10.4 (0.0-15.0) % Eos % (Auto) 3.5 (0.0-7.0) % Baso % (Auto) 0.4 (0.0-1.5) % Neut # (Auto) 4.2 (1.4-5.7) K/uL Lymph # (Auto) 2.1 (0.6-2.4) K/uL [place] # (Auto) 0.8 (0.0-0.8) K/uL Eos # (Auto) 0.3 (0.0-0.7) K/uL Baso # (Auto) 0.0 (0.0-0.1) K/uL Nucleated RBC % 0.0 /100WBC Nucleated RBCs # 0 K/uL INR 0.99 APTT 27.3 (18.6-31.3) SEC Sodium 143 (136-148) mmol/L Potassium 4.1 (3.5-5.1) mmol/L Chloride 108 H (98-107) mmol/L Carbon Dioxide 23.1 (21.0-32.0) mmol/L BUN 31 H (7.0-18.0) mg/dL Creatinine 1.3 (0.8-1.3) mg/dL Est Cr Clr Drug Dosing TNP Estimated GFR (MDRD) 54.0 ml/min Glucose 114 H (74-106) mg/dL Calcium 9.1 (8.5-10.1) mg/dL Magnesium (1.8-2.4) mg/dL Total Bilirubin 0.5 (0.2-1.0) mg/dL AST 29 (15-37) IU/L ALT 36 (14-63) IU/L Alkaline Phosphatase 55 (46-116) U/L Troponin I < 0.050 (0.000-0.056) ng/mL Total Protein 7.2 (6.4-8.2) g/dL Albumin 3.8 (3.4-5.0) g/dL Globulin 3.4 (2.6-4.0) g/dL Albumin/Globulin Ratio 1.1 (0.9-1.6) TSH, Ultra Sensitive 0.93 (0.36-3.74) uIU/mL 04/30/21 Range/Units 04:42 WBC (4.0-11.0) K/uL RBC (4.50-5.90) M/uL Hgb (13.0-17.0) g/dL Hct (38.0-50.0) % MCV (80.0-98.0) fL MCH (27.0-32.0) pg MCHC (31.0-37.0) g/dL RDW Std Deviation (28.0-62.0) fl RDW Coeff of Cj (11.0-15.0) % Plt Count (150-400) K/uL MPV (7.40-12.00) fL Neut % (Auto) (48.0-80.0) % Lymph % (Auto) (16.0-40.0) % [place] % (Auto) (0.0-15.0) % Eos % (Auto) (0.0-7.0) % Baso % (Auto) (0.0-1.5) % Neut # (Auto) (1.4-5.7) K/uL Lymph # (Auto) (0.6-2.4) K/uL [place] # (Auto) (0.0-0.8) K/uL Eos # (Auto) (0.0-0.7) K/uL Baso # (Auto) (0.0-0.1) K/uL Nucleated RBC % /100WBC Nucleated RBCs # K/uL INR APTT (18.6-31.3) SEC Sodium (136-148) mmol/L Potassium (3.5-5.1) mmol/L Chloride (98-107) mmol/L Carbon Dioxide (21.0-32.0) mmol/L BUN (7.0-18.0) mg/dL Creatinine (0.8-1.3) mg/dL Est Cr Clr Drug Dosing Estimated GFR (MDRD) ml/min Glucose (74-106) mg/dL Calcium (8.5-10.1) mg/dL Magnesium 2.0 (1.8-2.4) mg/dL Total Bilirubin (0.2-1.0) mg/dL AST (15-37) IU/L ALT (14-63) IU/L Alkaline Phosphatase (46-116) U/L Troponin I (0.000-0.056) ng/mL Total Protein (6.4-8.2) g/dL Albumin (3.4-5.0) g/dL Globulin (2.6-4.0) g/dL Albumin/Globulin Ratio (0.9-1.6) TSH, Ultra Sensitive (0.36-3.74) uIU/mL Result Diagrams: 04/30/21 04:42 04/30/21 04:42 Sepsis Event Note - Evaluation Sepsis Screening Result: No Definite Risk - Focused Exam Vital Signs: Vital Signs Temp Pulse Pulse Resp BP BP Pulse Ox 04/30/21 14:08 121 H 04/30/21 14:00 20 92/54 L 93 L 04/30/21 13:00 15 98/69 93 L 04/30/21 12:00 36.3 C 17 93/50 L 92 L 04/30/21 11:00 18 101/50 L 92 L 04/30/21 10:00 18 98/62 92 L 04/30/21 09:00 15 93/73 92 L 04/30/21 08:00 14 115/73 93 L 04/30/21 07:45 36.2 C 20 120/77 94 L 04/30/21 07:26 84 04/30/21 07:02 96 15 111/70 93 L 04/30/21 06:33 128 H 138/71 04/30/21 06:04 130 H 20 111/53 L 93 L 04/30/21 04:52 90 18 121/80 97 04/30/21 04:33 35.5 C L 140 H 20 96/69 100 Problem List Initiated/Reviewed/Updated: Yes Orders Last 24hrs: Active Orders 24 hr Category Date Time Status Patient Status [ADT] Routine ADT 04/30/21 06:25 Active Antiembolic Devices [RC] PER UNIT ROUTINE Care 04/30/21 08:30 Active EKG Documentation Completion [RC] AM Care 04/30/21 04:18 Active Oxygen Therapy [RC] PRN Care 04/30/21 14:19 Ordered Up ad Lisa [RC] ASDIRECTED Care 04/30/21 14:19 Ordered VTE/DVT Education [RC] PER UNIT ROUTINE Care 04/30/21 14:19 Ordered Vital Signs [RC] Q1H Care 04/30/21 08:00 Active Regular Diet [DIET] Diet 04/30/21 Breakfast Active BASIC METABOLIC PANEL,BMP [CHEM] AM Lab 05/01/21 05:11 Ordered CBC W/O DIFF,HEMOGRAM [HEME] AM Lab 05/01/21 05:11 Ordered MAGNESIUM [CHEM] AM Lab 05/01/21 05:11 Ordered Diltiazem [Cardizem] 100 mg Med 04/30/21 13:45 Active Sodium Chloride 0.9% [Normal Saline] 100 ml IV NOW Enoxaparin [Lovenox] Med 04/30/21 14:30 Ordered 40 mg SUBCUT Q24H Sodium Chloride 0.9% [Saline Flush] Med 04/30/21 04:18 Active 10 ml FLUSH ASDIRECTED PRN Sodium Chloride 0.9% [Saline Flush] Med 04/30/21 04:18 Active 2.5 ml FLUSH ASDIRECTED PRN Sotalol [Betapace] Med 04/30/21 13:45 Active 120 mg PO BID SCD [Sequential Compression Device] [OM.PC] Routine Oth 04/30/21 08:30 Ordered Saline Lock Insert [OM.PC] Stat Oth 04/30/21 04:18 Ordered Resuscitation Status Routine Resus Stat 04/30/21 14:19 Ordered Medication Orders Diltiazem HCl 100 mg/ Sodium (Chloride) 100 mls @ 5 mls/hr IV NOW JIMENA; Protocol Sodium Chloride (Sodium Chloride 0.9% 10 Ml Syringe) 10 ml FLUSH ASDIRECTED PRN PRN Reason: Keep Vein Open Last Admin: 04/30/21 04:49 Dose: 10 ml Documented by: [id number] Sodium Chloride (Sodium Chloride 0.9% 2.5 Ml Syringe) 2.5 ml FLUSH ASDIRECTED PRN PRN Reason: Keep Vein Open Last Admin: 04/30/21 04:48 Dose: 2.5 ml Documented by: [id number] Sotalol HCl (Sotalol 80 Mg Tab) 120 mg PO BID [facility] Assessment/Plan Comment:: 76 yo male admitted with atrial fibrillation with RVR Atrial fibrillation: HR rate better controlled and symptoms have resolved. We will hold antihypertensive mediations due to low blood pressures and continue rate controlling medications at tolerated.
[2021-04-30] MEDS ORDERED: Enoxaparin 40 MG/0.4 ML Syringe SUBCUT SCH (14:30)
[2021-05-01] MEDS ORDERED: Digoxin 500 MCG/2 ML Amp IVPUSH ONE (01:00)
[2021-05-01 06:10] LABS: CARBON DIOXIDE,CO2 23.5 mmol/L (21.0-32.0); POTASSIUM,K 3.9 mmol/L (3.5-5.1)
[2021-05-01] MEDS ORDERED: UBIDECARENONE 300 MG PO SCH (09:00)
[2021-05-01] MEDS: Aspirin 81 MG Tab.Chew PO SCH (10:09)
[2021-05-01] MEDS: Multivitamin Tab PO SCH (10:09)
[2021-05-01] MEDS: Digoxin 125 MCG Tab PO SCH (10:10)
--- NOTE | 2021-05-01 12:19 | PCM.PN ---
- General Info Date of Service: 05/01/21 Subjective Update: seen at bedside, no distress. converted to sinus rhythm at 2am Functional Status: Reports: Tolerating Diet, Ambulating, Urinating - Review of Systems General: Denies: Fever, Weakness, Fatigue Pulmonary: Denies: Shortness of Breath, Pleuritic Chest Pain Cardiovascular: Denies: Chest Pain, Palpitations, Dyspnea on Exertion Gastrointestinal: Denies: Abdominal Pain, Constipation, Decreased Appetite Genitourinary: Denies: Dysuria, Frequency, Burning Musculoskeletal: Denies: Neck Pain, Shoulder Pain, Arm Pain Skin: Denies: Cyanosis, Jaundice, Mottled Neurological: Denies: Confusion, Dizziness, Headache - Patient Data Vitals - Most Recent: Last Vital Signs Temp 36.3 C 05/01/21 08:00 Pulse 71 05/01/21 10:10 Resp 18 05/01/21 10:00 BP 103/64 05/01/21 10:00 Pulse Ox 93 L 05/01/21 10:00 Weight - Most Recent: 114.5 kg I&O - Last 24 Hours: Intake & Output 04/30/21 05/01/21 05/01/21 22:59 06:59 14:59 Intake Total 650 500 Output Total 600 875 Balance 50 -375 Lab Results Last 24 Hours: Laboratory Results - last 24 hr 05/01/21 05/01/21 Range/Units 05:05 05:05 WBC 7.47 (4.0-11.0) K/uL RBC 4.85 (4.50-5.90) M/uL Hgb 15.2 (13.0-17.0) g/dL Hct 44.6 (38.0-50.0) % MCV 92.0 (80.0-98.0) fL MCH 31.3 (27.0-32.0) pg MCHC 34.1 (31.0-37.0) g/dL RDW Std Deviation 46.4 (28.0-62.0) fl RDW Coeff of Cj 14 (11.0-15.0) % Plt Count 214 (150-400) K/uL MPV 9.60 (7.40-12.00) fL Nucleated RBC % 0.0 /100WBC Nucleated RBCs # 0 K/uL Sodium 142 (136-148) mmol/L Potassium 3.9 (3.5-5.1) mmol/L Chloride 108 H (98-107) mmol/L Carbon Dioxide 23.5 (21.0-32.0) mmol/L BUN 27 H (7.0-18.0) mg/dL Creatinine 1.4 H (0.8-1.3) mg/dL Est Cr Clr Drug Dosing 47.80 mL/min Estimated GFR (MDRD) 49.5 ml/min Glucose 101 (74-106) mg/dL Calcium 8.4 L (8.5-10.1) mg/dL Magnesium 2.1 (1.8-2.4) mg/dL Med Orders - Current: Current Medications Apixaban (Apixaban 5 Mg Tab) 5 mg PO BID [facility] Aspirin (Aspirin 81 Mg Tab.Chew) 81 mg PO DAILY [facility] Last Admin: 05/01/21 10:09 Dose: 81 mg Documented by: Digoxin (Digoxin 125 Mcg Tab) 125 mcg PO DAILY [facility] Last Admin: 05/01/21 10:10 Dose: 125 mcg Documented by: Ezetimibe (Ezetimibe 10 Mg Tab) 10 mg PO BEDTIME JIMENA Lovastatin (Lovastatin 20 Mg Tab) 10 mg PO BEDTIME [facility] Multivitamins/Minerals/Vitamin C (Multivitamin Tab) 1 tab PO DAILY [facility] Last Admin: 05/01/21 10:09 Dose: 1 tab Documented by: Ubidecarenone 100 Mg (Capsule) 1 each PO DAILY [facility] Sodium Chloride (Sodium Chloride 0.9% 10 Ml Syringe) 10 ml FLUSH ASDIRECTED PRN PRN Reason: Keep Vein Open Last Admin: 04/30/21 04:49 Dose: 10 ml Documented by: Sodium Chloride (Sodium Chloride 0.9% 2.5 Ml Syringe) 2.5 ml FLUSH ASDIRECTED PRN PRN Reason: Keep Vein Open Last Admin: 04/30/21 04:48 Dose: 2.5 ml Documented by: Sotalol HCl (Sotalol 80 Mg Tab) 120 mg PO BID [facility] Discontinued Medications Digoxin (Digoxin 500 Mcg/2 Ml Amp) 250 mcg IVPUSH ONETIME ONE Stop: 04/30/21 13:34 Last Admin: 04/30/21 14:08 Dose: 250 mcg Documented by: Digoxin (Digoxin 500 Mcg/2 Ml Amp) 250 mcg IVPUSH ONETIME ONE Stop: 04/30/21 20:19 Last Admin: 04/30/21 20:47 Dose: 250 mcg Documented by: Digoxin (Digoxin 500 Mcg/2 Ml Amp) 250 mcg IVPUSH ONETIME ONE Stop: 05/01/21 01:01 Last Admin: 05/01/21 00:57 Dose: 250 mcg Documented by: Diltiazem HCl (Diltiazem 25 Mg/5 Ml Sdv) 20 mg IVPUSH ONETIME ONE Stop: 04/30/21 04:21 Last Admin: 04/30/21 04:48 Dose: 20 mg Documented by: Diltiazem HCl (Diltiazem 25 Mg/5 Ml Sdv) 20 mg IVPUSH ONETIME ONE Stop: 04/30/21 06:57 Last Admin: 04/30/21 07:01 Dose: 20 mg Documented by: Diltiazem HCl (Diltiazem 25 Mg/5 Ml Sdv) Confirm Administered Dose 25 mg .ROUTE .STK-MED ONE Stop: 04/30/21 06:56 Last Admin: 04/30/21 07:20 Dose: Not Given Documented by: Enoxaparin Sodium (Enoxaparin 40 Mg/0.4 Ml Syringe) 40 mg SUBCUT Q24H JIMENA Last Admin: 04/30/21 15:04 Dose: 40 mg Documented by: Sodium Chloride (Normal Saline) 1,000 mls @ 999 mls/hr IV .Bolus ONE Stop: 04/30/21 05:18 Last Admin: 04/30/21 04:48 Dose: 999 mls/hr Documented by: Diltiazem HCl 100 mg/ Sodium (Chloride) 100 mls @ 5 mls/hr IV NOW JIMENA; Protocol Last Titration: 04/30/21 11:53 Dose: 0 mg/hr, 0 mls/hr Documented by: Metoprolol Tartrate 5 mg/ (Sodium Chloride) 55 mls @ 100 mls/hr IV ONETIME ONE Stop: 04/30/21 06:56 Last Admin: 04/30/21 06:28 Dose: Not Given Documented by: Diltiazem HCl 100 mg/ Sodium (Chloride) 100 mls @ 5 mls/hr IV NOW JIMENA; Protocol Metoprolol Tartrate (Metoprolol Tartrate 5 Mg/5 Ml Sdv) 5 mg IVPUSH ONETIME ONE Stop: 04/30/21 06:30 Last Admin: 04/30/21 06:33 Dose: 5 mg Documented by: Metoprolol Tartrate (Metoprolol Tartrate 5 Mg/5 Ml Sdv) Confirm Administered Dose 5 mg .ROUTE .STK-MED ONE Stop: 04/30/21 06:28 Last Admin: 04/30/21 06:33 Dose: Not Given Documented by: Sotalol HCl (Sotalol 80 Mg Tab) 120 mg PO BID JIMENA Last Admin: 04/30/21 16:40 Dose: 120 mg Documented by: - Exam General: Alert, Oriented Lungs: Clear to Auscultation Cardiovascular: Regular Rate, Regular Rhythm, No Murmurs GI/Abdominal Exam: Normal Bowel Sounds, Soft, Non-Tender - Patient Data Lab Results Last 24 hrs: Laboratory Results - last 24 hr 05/01/21 05/01/21 Range/Units 05:05 05:05 WBC 7.47 (4.0-11.0) K/uL RBC 4.85 (4.50-5.90) M/uL Hgb 15.2 (13.0-17.0) g/dL Hct 44.6 (38.0-50.0) % MCV 92.0 (80.0-98.0) fL MCH 31.3 (27.0-32.0) pg MCHC 34.1 (31.0-37.0) g/dL RDW Std Deviation 46.4 (28.0-62.0) fl RDW Coeff of Cj 14 (11.0-15.0) % Plt Count 214 (150-400) K/uL MPV 9.60 (7.40-12.00) fL Nucleated RBC % 0.0 /100WBC Nucleated RBCs # 0 K/uL Sodium 142 (136-148) mmol/L Potassium 3.9 (3.5-5.1) mmol/L Chloride 108 H (98-107) mmol/L Carbon Dioxide 23.5 (21.0-32.0) mmol/L BUN 27 H (7.0-18.0) mg/dL Creatinine 1.4 H (0.8-1.3) mg/dL Est Cr Clr Drug Dosing 47.80 mL/min Estimated GFR (MDRD) 49.5 ml/min Glucose 101 (74-106) mg/dL Calcium 8.4 L (8.5-10.1) mg/dL Magnesium 2.1 (1.8-2.4) mg/dL Result Diagrams: 05/01/21 05:05 05/01/21 05:05 Sepsis Event Note - Evaluation Sepsis Screening Result: No Definite Risk - Focused Exam Vital Signs: Vital Signs Temp Pulse Resp BP Pulse Ox 05/01/21 10:10 71 05/01/21 10:00 18 103/64 93 L 05/01/21 09:00 16 109/55 L 92 L 05/01/21 08:00 36.3 C 15 115/63 92 L 05/01/21 07:00 14 114/54 L 94 L 05/01/21 06:00 15 118/56 L 92 L 05/01/21 05:00 15 125/42 L 94 L 05/01/21 04:00 15 106/60 92 L 05/01/21 03:00 36.3 C 18 98/66 95 05/01/21 02:00 16 113/69 94 L 05/01/21 00:57 117 H 05/01/21 00:53 17 96/67 93 L - Problem List & Annotations (1) Hypertension SNOMED Code(s): 18532676 Code(s): I10 - ESSENTIAL (PRIMARY) HYPERTENSION Status: Acute Current Visit: Yes (2) History of atrial fibrillation SNOMED Code(s): 010974215 Code(s): Z86.79 - PERSONAL HISTORY OF OTHER DISEASES OF THE CIRCULATORY SYSTEM Status: Acute Current Visit: Yes (3) Status post ablation of atrial fibrillation SNOMED Code(s): 457157139, 011377439, 772014601 Code(s): Z98.890 - OTHER SPECIFIED POSTPROCEDURAL STATES; Z86.79 - PERSONAL HISTORY OF OTHER DISEASES OF THE CIRCULATORY SYSTEM Status: Acute Current Visit: Yes (4) Atrial fibrillation with rapid ventricular response SNOMED Code(s): 391454574368312 Code(s): I48.91 - UNSPECIFIED ATRIAL FIBRILLATION Status: Acute Current Visit: Yes - Problem List Review Problem List Initiated/Reviewed/Updated: Yes - My Orders Last 24 Hours: My Active Orders 05/01/21 09:00 Aspirin 81 mg PO DAILY Digoxin [Lanoxin] 125 mcg PO DAILY Multivitamins [Tab-A-Kylee] 1 tab PO DAILY Patient's Own Medication [Ptom] 1 each PO DAILY 05/01/21 12:15 Apixaban [Eliquis] 5 mg PO BID Sotalol [Betapace] 120 mg PO BID 05/01/21 21:00 Ezetimibe [Zetia] 10 mg PO BEDTIME Lovastatin [Mevacor] 10 mg PO BEDTIME - Plan Plan:: 76 yo male admitted with atrial fibrillation with RVR Patient was initially started on Cardizem drip but his blood pressure was on the lower side so the drip was stopped and patient was loaded with digoxin Overnight patient converted back to normal sinus rhythm Continue digoxin 125 daily Resume sotalol, watch for bradycardia Review of records from 2019 showed patient has a normal LV function Patient's [id number] score is greater than 3, will need to be started on anticoagulation for stroke prevention We will start Eliquis 5 mg twice daily Continue aspirin Continue home medications as appropriate, hold off on other antihypertensive medications as blood pressure is still on the softer side Will set up a primary care follow-up upon discharge and thereafter 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
[2021-05-01] MEDS: Sotalol 80 MG Tab PO SCH ×2 (12:56→21:03)
[2021-05-01] MEDS: Apixaban 5 MG Tab PO SCH ×2 (12:56→21:02)
[2021-05-01] MEDS ORDERED: Ezetimibe 10 MG Tab PO SCH (21:00)
[2021-05-02 06:48] LABS: BLOOD UREA NITROGEN,BUN 26 mg/dL (7.0-18.0); CARBON DIOXIDE,CO2 23.5 mmol/L (21.0-32.0); CHLORIDE,CL 107 mmol/L (98-107); GLUCOSE RANDOM 97 mg/dL (74-106); POTASSIUM,K 3.7 mmol/L (3.5-5.1); SODIUM,NA 141 mmol/L (136-148)
[2021-05-02] MEDS: Multivitamin Tab PO SCH (08:41)
[2021-05-02] MEDS: Aspirin 81 MG Tab.Chew PO SCH (08:41)
[2021-05-02] MEDS: Apixaban 5 MG Tab PO SCH (08:41)
[2021-05-02] MEDS: Digoxin 125 MCG Tab PO SCH (08:41)
[2021-05-02] MEDS: Sotalol 80 MG Tab PO SCH (08:44)
[2021-05-02] MEDS ORDERED: UBIDECARENONE 300 MG PO SCH (09:00)
[2021-05-02] MEDS ORDERED: Potassium Chloride 20 MEQ Tab.ER PO ONE (10:46)
[2021-05-02 11:47] VITALS: BP 125/69; PULSE 55
--- NOTE | 2021-05-02 12:26 | PCM.DCSUM1 ---
Discharge Summary - Hospital Course Free Text/Narrative:: 76 yo male who with past medical history of A. fib status post ablation who presented to the ER with history of palpitaitons for a day. Patient denies any chest pain, shortness of breath, or dizziness. He was found to be in atrial fibrillation with RVR, EKG was significant for atrial fibrillation with rapid ventricular rate in 130s, troponin was negative. He reports a history of a.fib but has in been in normal sinus for years. He takes sotolol, and ASA. Patient does not take any blood thinner. Patient denied any chest pain, fever, chills, shakes, nausea, vomiting, diarrhea, dysuria, frequency, urgency, melena, bright red blood per rectum, hematuria. Patient states that he follows up with a head of data in [place] who did a very thorough work-up on him including a stress test and a cardiac cath. The cardiac cath was negative for any signifi cant coronary artery disease. Patient also had a 2D echo in last few months which reportedly which showed normal EF. Patient had an ablation in the past for A. fib and ever since has been in sinus rhythm. He takes sotalol and aspirin at home. In the ER patient was started on Cardizem drip but his blood pressure did not tolerate it well, his blood pressure dropped so the Cardizem drip was stopped. Patient was loaded with digoxin. Eventually overnight patient converted to normal sinus rhythm and patient was continued on daily dose of digoxin. Sotalol was resumed the next day. Patient was closely observed over telemetry for significant bradycardia. Patient tolerated digoxin and sotalol together well. Patient was also started on Eliquis 5 mg twice daily for stroke prevention from proximal A. fib. Aspirin was held upon discharge due to patient reporting no significant coronary artery disease on recent cardiac cath and decrease the risk of GI bleed. Patient was recommended to follow-up closely with his primary care doctor the appointment for home was made upon discharge. Repeat echo was not done as patient had a recent echo last few months. Patient was recommended to follow-up with his head of data the next few weeks patient was medically stable for discharge and recommended to watch for any symptoms of bleeding including black stools, bright red stools, bloody vomiting. Diagnosis: Stroke: No - Discharge Data Discharge Date: 05/02/21 Discharge Disposition: Home, Self-Care 01 Condition: Stable - Referral to Home Health Primary Care Physician: PCP Not In Area - Discharge Diagnosis/Problem(s) (1) Hypertension SNOMED Code(s): 93794856 ICD Code: I10 - ESSENTIAL (PRIMARY) HYPERTENSION Status: Acute Current Visit: Yes (2) History of atrial fibrillation SNOMED Code(s): 585798715 ICD Code: Z86.79 - PERSONAL HISTORY OF OTHER DISEASES OF THE CIRCULATORY SYSTEM Status: Acute Current Visit: Yes (3) Status post ablation of atrial fibrillation SNOMED Code(s): 599655871, 356136874, 033395565 ICD Code: Z98.890 - OTHER SPECIFIED POSTPROCEDURAL STATES; Z86.79 - PERSONAL HISTORY OF OTHER DISEASES OF THE CIRCULATORY SYSTEM Status: Acute Current Visit: Yes (4) Atrial fibrillation with rapid ventricular response SNOMED Code(s): 137139424323831 ICD Code: I48.91 - UNSPECIFIED ATRIAL FIBRILLATION Status: Acute Current Visit: Yes - Discharge Plan *PRESCRIPTION DRUG MONITORING PROGRAM REVIEWED*: No *COPY OF PRESCRIPTION DRUG MONITORING REPORT IN PATIENT MARIBETH: No Prescriptions/Med Rec: Digoxin 125 mcg PO DAILY #60 tablet Apixaban [Eliquis] 5 mg PO BID #90 tablet Home Medications: Home Meds Chlorthalidone 25 mg PO DAILY 03/10/15 [History] Finasteride [Proscar] 5 mg PO DAILY 03/10/15 [History] Lisinopril 20 mg PO BID 03/10/15 [History] Ezetimibe 10 mg PO DAILY 04/30/21 [History] Lovastatin 10 mg PO BEDTIME 04/30/21 [History] Multivitamin 1 tab PO DAILY 04/30/21 [History] Sotalol HCl [Sotalol] 120 mg PO BID 04/30/21 [History] Ubidecarenone [Coq-10] 300 mg PO DAILY 04/30/21 [History] Apixaban [Eliquis] 5 mg PO BID #90 tablet 05/02/21 [Rx] Digoxin 125 mcg PO DAILY #60 tablet 05/02/21 [Rx] Patient Handouts: Digoxin Toxicity, Exercise Stress Test, Digoxin tablets or capsules, Apixaban oral tablets, Atrial Fibrillation, [id number], Hypertension, Adult, Preventing Atrial Fibrillation-Related Stroke Referrals: Bianca Han [Ordering Only Provider] - 05/11/21 2:30 pm (Follow up appointment with Dr. Dev Kenny. Please wear mask and arrive 15 minutes early before appointment. Please bring photo ID and insurance. *You will need to have a Digoxin level drawn in the outpatient lab prior to your appointment; you can come in that morning or before your appointment. Prescription will be provided. ) - Discharge Summary/Plan Comment DC Time >30 min.: No - Patient Data Vitals - Most Recent: Last Vital Signs Temp 36 C L 05/02/21 11:46 Pulse 55 L 05/02/21 11:46 Resp 16 05/02/21 11:46 BP 125/69 05/02/21 11:46 Pulse Ox 95 05/02/21 11:46 Weight - Most Recent: 114.5 kg I&O - Last 24 hours: Intake & Output 05/01/21 05/02/21 05/02/21 22:59 06:59 14:59 Intake Total 800 700 Output Total 660 625 Balance 140 75 Lab Results - Last 24 hrs: Laboratory Results - last 24 hr 05/02/21 05/02/21 Range/Units 05:51 05:51 WBC 8.02 (4.0-11.0) K/uL RBC 4.84 (4.50-5.90) M/uL Hgb 15.1 (13.0-17.0) g/dL Hct 44.3 (38.0-50.0) % MCV 91.5 (80.0-98.0) fL MCH 31.2 (27.0-32.0) pg MCHC 34.1 (31.0-37.0) g/dL RDW Std Deviation 45.5 (28.0-62.0) fl RDW Coeff of Cj 14 (11.0-15.0) % Plt Count 212 (150-400) K/uL MPV 9.20 (7.40-12.00) fL Neut % (Auto) 61.2 (48.0-80.0) % Lymph % (Auto) 24.2 (16.0-40.0) % [place] % (Auto) 11.3 (0.0-15.0) % Eos % (Auto) 3.1 (0.0-7.0) % Baso % (Auto) 0.2 (0.0-1.5) % Neut # (Auto) 4.9 (1.4-5.7) K/uL Lymph # (Auto) 1.9 (0.6-2.4) K/uL [place] # (Auto) 0.9 H (0.0-0.8) K/uL Eos # (Auto) 0.3 (0.0-0.7) K/uL Baso # (Auto) 0.0 (0.0-0.1) K/uL Nucleated RBC % 0.0 /100WBC Nucleated RBCs # 0 K/uL Sodium 141 (136-148) mmol/L Potassium 3.7 (3.5-5.1) mmol/L Chloride 107 (98-107) mmol/L Carbon Dioxide 23.5 (21.0-32.0) mmol/L BUN 26 H (7.0-18.0) mg/dL Creatinine 1.1 (0.8-1.3) mg/dL Est Cr Clr Drug Dosing 60.83 mL/min Estimated GFR (MDRD) > 60.0 ml/min Glucose 97 (74-106) mg/dL Calcium 8.7 (8.5-10.1) mg/dL Phosphorus 3.4 (2.6-4.7) mg/dL Magnesium 2.0 (1.8-2.4) mg/dL Med Orders - Current: Current Medications Apixaban (Apixaban 5 Mg Tab) 5 mg PO BID [facility] Last Admin: 05/02/21 08:41 Dose: 5 mg Documented by: Aspirin (Aspirin 81 Mg Tab.Chew) 81 mg PO DAILY [facility] Last Admin: 05/02/21 08:41 Dose: 81 mg Documented by: Digoxin (Digoxin 125 Mcg Tab) 125 mcg PO DAILY [facility] Last Admin: 05/02/21 08:41 Dose: 125 mcg Documented by: Ezetimibe (Ezetimibe 10 Mg Tab) 10 mg PO BEDTIME [facility] Last Admin: 05/01/21 21:05 Dose: 10 mg Documented by: Lovastatin (Lovastatin 20 Mg Tab) 10 mg PO BEDTIME [facility] Last Admin: 05/01/21 21:00 Dose: 10 mg Documented by: Multivitamins/Minerals/Vitamin C (Multivitamin Tab) 1 tab PO DAILY [facility] Last Admin: 05/02/21 08:41 Dose: 1 tab Documented by: Ubidecarenone 300 Mg Capsule *Pt Own Med * 1 each PO DAILY [facility] Last Admin: 05/02/21 08:44 Dose: Not Given Documented by: Sodium Chloride (Sodium Chloride 0.9% 10 Ml Syringe) 10 ml FLUSH ASDIRECTED PRN PRN Reason: Keep Vein Open Last Admin: 04/30/21 04:49 Dose: 10 ml Documented by: Sodium Chloride (Sodium Chloride 0.9% 2.5 Ml Syringe) 2.5 ml FLUSH ASDIRECTED PRN PRN Reason: Keep Vein Open Last Admin: 04/30/21 04:48 Dose: 2.5 ml Documented by: Sotalol HCl (Sotalol 80 Mg Tab) 120 mg PO BID [facility] Last Admin: 05/02/21 08:44 Dose: 120 mg Documented by: Discontinued Medications Digoxin (Digoxin 500 Mcg/2 Ml Amp) 250 mcg IVPUSH ONETIME ONE Stop: 04/30/21 13:34 Last Admin: 04/30/21 14:08 Dose: 250 mcg Documented by: Digoxin (Digoxin 500 Mcg/2 Ml Amp) 250 mcg IVPUSH ONETIME ONE Stop: 04/30/21 20:19 Last Admin: 04/30/21 20:47 Dose: 250 mcg Documented by: Digoxin (Digoxin 500 Mcg/2 Ml Amp) 250 mcg IVPUSH ONETIME ONE Stop: 05/01/21 01:01 Last Admin: 05/01/21 00:57 Dose: 250 mcg Documented by: Diltiazem HCl (Diltiazem 25 Mg/5 Ml Sdv) 20 mg IVPUSH ONETIME ONE Stop: 04/30/21 04:21 Last Admin: 04/30/21 04:48 Dose: 20 mg Documented by: Diltiazem HCl (Diltiazem 25 Mg/5 Ml Sdv) 20 mg IVPUSH ONETIME ONE Stop: 04/30/21 06:57 Last Admin: 04/30/21 07:01 Dose: 20 mg Documented by: Diltiazem HCl (Diltiazem 25 Mg/5 Ml Sdv) Confirm Administered Dose 25 mg .ROUTE .STK-MED ONE Stop: 04/30/21 06:56 Last Admin: 04/30/21 07:20 Dose: Not Given Documented by: Enoxaparin Sodium (Enoxaparin 40 Mg/0.4 Ml Syringe) 40 mg SUBCUT Q24H [facility] Last Admin: 04/30/21 15:04 Dose: 40 mg Documented by: Sodium Chloride (Normal Saline) 1,000 mls @ 999 mls/hr IV .Bolus ONE Stop: 04/30/21 05:18 Last Admin: 04/30/21 04:48 Dose: 999 mls/hr Documented by: Diltiazem HCl 100 mg/ Sodium (Chloride) 100 mls @ 5 mls/hr IV NOW [facility]; Protocol Last Titration: 04/30/21 11:53 Dose: 0 mg/hr, 0 mls/hr Documented by: Metoprolol Tartrate 5 mg/ (Sodium Chloride) 55 mls @ 100 mls/hr IV ONETIME ONE Stop: 04/30/21 06:56 Last Admin: 04/30/21 06:28 Dose: Not Given Documented by: Diltiazem HCl 100 mg/ Sodium (Chloride) 100 mls @ 5 mls/hr IV NOW [facility]; Protocol Metoprolol Tartrate (Metoprolol Tartrate 5 Mg/5 Ml Sdv) 5 mg IVPUSH ONETIME ONE Stop: 04/30/21 06:30 Last Admin: 04/30/21 06:33 Dose: 5 mg Documented by: Metoprolol Tartrate (Metoprolol Tartrate 5 Mg/5 Ml Sdv) Confirm Administered Dose 5 mg .ROUTE .STK-MED ONE Stop: 04/30/21 06:28 Last Admin: 04/30/21 06:33 Dose: Not Given Documented by: Ubidecarenone 300 Mg (Capsule) 1 each PO DAILY [facility] Last Admin: 05/01/21 16:18 Dose: Not Given Documented by: Potassium Chloride (Potassium Chloride 20 Meq Tab.Er) 40 meq PO ONETIME ONE Stop: 05/02/21 10:47 Last Admin: 05/02/21 11:23 Dose: 40 meq Documented by: Sotalol HCl (Sotalol 80 Mg Tab) 120 mg PO BID [facility] Last Admin: 04/30/21 16:40 Dose: 120 mg Documented by:
== END 2021-05-02 14:11 | disposition home or self-care (01) | DRG 310 ==
LOC: MW.ED 03:52 → MW.ICU 06:25 → MW.MS 05-01 15:06
PROVIDERS: ADMIT Internal Medicine; ATTEND Internal Medicine
DX: I48.91 Unspecified atrial fibrillation (principal); E78.00 Pure hypercholesterolemia, unspecified; I10 Essential (primary) hypertension; E78.5 Hyperlipidemia, unspecified; G47.33 Obstructive sleep apnea (adult) (pediatric); Z79.82 Long term (current) use of aspirin; Z79.899 Other long term (current) drug therapy; K21.9 Gastro-esophageal reflux disease without esophagitis; N40.0 Benign prostatic hyperplasia without lower urinary tract symptoms; Z79.01 Long term (current) use of anticoagulants; Z86.79 Personal history of other diseases of the circulatory system
CPT/HCPCS: 36415; 71045; 80053; 83735; 84443; 84484; 85025; 85610; 85730; 93005; J3490 ×2; J7030; 80048; 84100; 85027; A9270-GY; J1160; J1650

== ENCOUNTER 2022-07-13 08:52 | Emergency (ER) | payer MEDICARE ==
[2022-07-13] MEDS ORDERED: Acetaminophen 325 MG Tab PO ONE (08:58)
[2022-07-13 09:08] VITALS: BP 143/81; PULSE 74
== END 2022-07-13 09:55 | disposition home or self-care (01) ==
LOC: MW.ED 08:52
DX: R07.89 Other chest pain (principal); I10 Essential (primary) hypertension; Z79.01 Long term (current) use of anticoagulants; Z79.899 Other long term (current) drug therapy
CPT/HCPCS: 71045; 71045-26; 99283

== ENCOUNTER 2022-11-23 07:59 | Day surgery (SDC) | payer MEDICARE ==
[~2022-11-23 07:59] MED LIST: Lactated Ringers 1,000 ML IV SCH; cefOXitin 2 GM in Premix Bag 1 BAG IV ONE
[2022-11-23] MEDS ORDERED: cefOXitin 1 GM Vial ONE (08:49)
[2022-11-23] MEDS ORDERED: Propofol 200 MG/20 ML SDV ONE (09:23)
[2022-11-23] MEDS ORDERED: Lidocaine 2% 5 ML SDV ONE (09:23)
[2022-11-23] MEDS ORDERED: Lactated Ringers 1,000 ML IV SCH (10:00)
[2022-11-23 10:29] VITALS: BP 119/68; PULSE 58
== END 2022-11-23 10:32 | disposition home or self-care (01) ==
LOC: MW.SDS 07:59
PROVIDERS: ATTEND Surgery
DX: Z12.11 Encounter for screening for malignant neoplasm of colon (principal); D12.2 Benign neoplasm of ascending colon; K57.30 Diverticulosis of large intestine without perforation or abscess without bleeding; K64.8 Other hemorrhoids; I10 Essential (primary) hypertension; I25.10 Atherosclerotic heart disease of native coronary artery without angina pectoris; I48.91 Unspecified atrial fibrillation; E78.00 Pure hypercholesterolemia, unspecified; E66.9 Obesity, unspecified; G47.30 Sleep apnea, unspecified; N40.0 Benign prostatic hyperplasia without lower urinary tract symptoms; Z86.010 Personal history of colon polyps; Z79.899 Other long term (current) drug therapy; Z98.890 Other specified postprocedural states; Z68.36 Body mass index [BMI] 36.0-36.9, adult
CPT/HCPCS: 45380; 88305; J0694; J2704; J3490; J7120

== ENCOUNTER 2025-08-17 08:23 | Inpatient (IN) | payer MEDICARE ==
[2025-08-17] MEDS ORDERED: Sodium Chloride 0.9% 2.5 ML Syringe FLUSH PRN ×2 (08:50→15:02)
[2025-08-17] MEDS ORDERED: Sodium Chloride 0.9% 10 ML Syringe FLUSH PRN ×2 (08:50→15:02)
[2025-08-17 08:59] LABS: BASOPHILS ABSOLUTE AUTO 0.07 K/uL (0.00-0.20); BASOPHILS PERCENT AUTO 0.9 % (0.0-1.0); EOSINOPHILS ABSOLUTE AUTO 0.14 K/uL (0.00-0.45); EOSINOPHILS PERCENT AUTO 1.7 % (0.0-6.0); IMMATURE GRAN ABSOLUTE AUTO 0.05 K/uL (0.00-0.05); IMMATURE GRAN PERCENT AUTO 0.6 % (0.0-0.4); LYMPHOCYTES ABSOLUTE AUTO 2.10 K/uL (1.00-4.80); LYMPHOCYTES PERCENT AUTO 25.8 % (24.0-44.0); MEAN PLATELET VOLUME 8.6 fL (9.4-12.4); MONOCYTES ABSOLUTE AUTO 0.86 K/uL (0.00-0.80); MONOCYTES PERCENT AUTO 10.6 % (0.0-8.0); NEUTROPHILS ABSOLUTE AUTO 4.91 K/uL (1.80-7.70); NEUTROPHILS PERCENT AUTO 60.4 % (41.0-71.0); NRBC ABSOLUTE 0.00 K/uL (0.00-0.02); NRBC PERCENT 0.0 /100WBC (0.0-0.2); PLATELET COUNT,PLT 270 K/uL (150-400); RED BLOOD CELL COUNT 5.00 M/uL (4.52-5.90); WHITE BLOOD CELL COUNT,WBC 8.13 K/uL (3.9-11.3)
[2025-08-17] MEDS: Diltiazem 25 MG/5 ML SDV IVPUSH ONE ×2 (09:03→10:43)
[2025-08-17 09:34] LABS: A/G RATIO 1.1 (0.9-1.6); ALANINE AMINOTRANSFERASE,ALT 31.0 IU/L (14-63); ASPARTATE AMNIOTRANSFERASE,AST 28.0 IU/L (15-37); BILIRUBIN TOTAL 0.7 mg/dL (0.2-1.0); BLOOD UREA NITROGEN,BUN 37.0 mg/dL (7.0-18.0); CARBON DIOXIDE,CO2 22.0 mmol/L (21.0-32.0); CHLORIDE,CL 106.0 mmol/L (98-107); CREATININE 1.3 mg/dL (0.8-1.3); EST CRCL DRUG DOSING (CG) 48.35 mL/min; GLUCOSE RANDOM 117.0 mg/dL (74-106); POTASSIUM,K 4.1 mmol/L (3.5-5.1); PROTEIN TOTAL,TP 7.8 g/dL (6.4-8.2); SODIUM,NA 140.0 mmol/L (136-148)
[2025-08-17 09:36] LABS: ESTIMATED GFR 56.0 mL/min (>60)
[2025-08-17] MEDS: Diltiazem 100 MG in Sodium Chloride 0.9% 100 ML IV SCH (12:21)
[2025-08-17] MEDS ORDERED: Ondansetron 4 MG/2 ML SDV IVPUSH PRN (15:02)
[2025-08-17 15:11] LABS: TSH ULTRASENSITIVE 1.0 uIU/mL (0.36-3.74)
[2025-08-17] MEDS ORDERED: Non-Formulary Medication 1 Each (Lovastatin [Lovastatin] 40 MG Tablet) PO SCH (21:00)
[2025-08-18 05:43] LABS: BASOPHILS ABSOLUTE AUTO 0.06 K/uL (0.00-0.20); BASOPHILS PERCENT AUTO 0.7 % (0.0-1.0); EOSINOPHILS ABSOLUTE AUTO 0.15 K/uL (0.00-0.45); EOSINOPHILS PERCENT AUTO 1.8 % (0.0-6.0); IMMATURE GRAN ABSOLUTE AUTO 0.05 K/uL (0.00-0.05); IMMATURE GRAN PERCENT AUTO 0.6 % (0.0-0.4); LYMPHOCYTES ABSOLUTE AUTO 2.39 K/uL (1.00-4.80); LYMPHOCYTES PERCENT AUTO 28.7 % (24.0-44.0); MEAN PLATELET VOLUME 8.7 fL (9.4-12.4); MONOCYTES ABSOLUTE AUTO 0.94 K/uL (0.00-0.80); MONOCYTES PERCENT AUTO 11.3 % (0.0-8.0); NEUTROPHILS ABSOLUTE AUTO 4.74 K/uL (1.80-7.70); NEUTROPHILS PERCENT AUTO 56.9 % (41.0-71.0); NRBC ABSOLUTE 0.00 K/uL (0.00-0.02); NRBC PERCENT 0.0 /100WBC (0.0-0.2); PLATELET COUNT,PLT 234 K/uL (150-400); RED BLOOD CELL COUNT 4.62 M/uL (4.52-5.90); WHITE BLOOD CELL COUNT,WBC 8.33 K/uL (3.9-11.3)
[2025-08-18 06:05] LABS: BLOOD UREA NITROGEN,BUN 28.0 mg/dL (7.0-18.0); CARBON DIOXIDE,CO2 24.9 mmol/L (21.0-32.0); CHLORIDE,CL 109.0 mmol/L (98-107); CREATININE 1.3 mg/dL (0.8-1.3); EST CRCL DRUG DOSING (CG) 48.35 mL/min; GLUCOSE RANDOM 95.0 mg/dL (74-106); POTASSIUM,K 3.8 mmol/L (3.5-5.1); SODIUM,NA 143.0 mmol/L (136-148)
[2025-08-18 06:13] LABS: ESTIMATED GFR 56.0 mL/min (>60)
[2025-08-18 08:30] VITALS: PULSE 72
[2025-08-18] MEDS ORDERED: Non-Formulary Medication 1 Each (Ubidecarenone 100 MG Capsule) PO SCH (09:00)
[2025-08-18 13:02] VITALS: BP 118/85
== END 2025-08-18 14:46 | disposition home or self-care (01) | DRG 310 ==
LOC: MW.ED 08:23 → MW.ICU 14:59
PROVIDERS: ADMIT Family Medicine; ATTEND Family Medicine
DX: I48.91 Unspecified atrial fibrillation (principal); I10 Essential (primary) hypertension; I12.9 Hypertensive chronic kidney disease with stage 1 through stage 4 chronic kidney disease, or unspecified chronic kidney disease; N18.31 Chronic kidney disease, stage 3a; E78.00 Pure hypercholesterolemia, unspecified; Z96.652 Presence of left artificial knee joint; G47.30 Sleep apnea, unspecified; Z79.01 Long term (current) use of anticoagulants; Z79.899 Other long term (current) drug therapy; Z85.820 Personal history of malignant melanoma of skin; Z98.890 Other specified postprocedural states
CPT/HCPCS: 36415; 71045; 80053; 80162; 83735; 84443; 84484; 85025; 93005 ×2; 96365; 96376; 99285; J1160; J1163 ×2; J3490; 80048; 93010; 93306; A9270-GY